=== PATIENT | male | born 1960 | race Caucasian/White ===

== ENCOUNTER 2017-07-09 17:48 | Observation (INO) | payer OTHER ==
[2017-07-09] MEDS ORDERED: Sodium Chloride 0.9% 1,000 ML IV ONE (18:48)
[2017-07-09 19:04] LABS: BASO # 0.1 K/uL (0.0-0.2); BASO % 0.8 % (0.0-2.0); EOS % 0.2 % (0.0-4.0); HEMOGLOBIN 15.7 g/dL (12.0-18.0); LYMPH # 0.6 K/uL (1.0-4.3); LYMPH % 6.2 % (20.0-40.0); MEAN CORPUSCULAR HEMOGLOBIN 32.2 pg (27.0-31.0); MEAN CORPUSCULAR HGB CONC 35.3 g/dL (33.0-37.0); MEAN PLATELET VOLUME 7.9 fL (7.2-11.7); MONO # 0.5 K/uL (0.0-0.8); MONO % 5.6 % (0.0-10.0); NEUT # 8.3 K/uL (1.8-7.0); NEUT % 87.2 % (50.0-75.0); NRBC % 0.1 % (0.0-2.0); PLATELET COUNT 206 K/uL (130-400); RBC 4.87 Mil/uL (4.40-5.90); RED CELL DISTRIBUTION WIDTH 12.9 % (11.5-14.5); WHITE BLOOD COUNT 9.5 K/uL (4.8-10.8)
[2017-07-09] MEDS ORDERED: Sodium Chloride 0.9% 1,000 ML ONE (19:07)
[2017-07-09 19:19] LABS: ALB/GLOB RATIO 1.2 (1.0-2.1); ALBUMIN 4.4 g/dL (3.5-5.0); ALT/SGPT 52 U/L (21-72); AST/SGOT 71 U/L (17-59); BLOOD UREA NITROGEN 18 mg/dL (9-20); GFR AFRICAN-AMERICAN > 60; GFR NON-AFRICAN AMERICAN > 60
[2017-07-09 19:20] LABS: BARBITURATES, UR NEGATIVE (NEGATIVE); BENZODIAZEPINES, UR NEGATIVE (NEGATIVE); OPIATES, UR NEGATIVE (NEGATIVE); PHENCYCLIDINE, UR NEGATIVE (NEGATIVE)
[2017-07-09 19:27] LABS: BANDS 4 % (0-2); BASOPHIL 1 % (0-2); LYMPHOCYTE 7 % (20-40); MICROCYTOSIS SLIGHT; MONOCYTE 5 % (0-10); NEUTROPHIL 83 % (50-75); PLATELET ESTIMATE NORMAL (NORMAL); TOTAL CELLS COUNTED 100
--- NOTE | 2017-07-09 20:08 | C.PDOC ---
History Of Present Illness 57 year old male, whose PMHx includes HTN, presents to the ED for evaluation of chest pain which has been intermittent for around 1 year. Patient notes he used to see Dr. Villatoro who has since retired and patient has not found a new PMD. Patient reports he began drinking alcohol and using cocaine around 6 days ago. Patient reports drinking 6 bottles of wine over the past weekend. He has not had any alcoholic intake in 2 days. Patient reports constant chest pain that is associated with shortness of breath and states he is shaky. Upon ED arrival, patient was found to have heart rate of 120bpm and blood pressure around 175/ 115. Additionally, patient reports Dr. Villatoro discontinued his hypertension medicaion (reason unknown) and he has not taken anything since. Patient reports he takes anti-inflammatories almost on a daily basis. Patient denies other substance abuse, fever, chills, headache, dizziness, nausea, vomiting, extremity numbness/weakness. Time Seen by Provider: 07/09/17 18:37 Chief Complaint (Nursing): Chest Pain History Per: Patient History/Exam Limitations: no limitations Onset/Duration Of Symptoms: Days Current Symptoms Are (Timing): Still Present Quality: "Pain" Associated Symptoms: denies: Nausea Additional History Per: Patient Past Medical History Reviewed: Historical Data, Nursing Documentation, Vital Signs Vital Signs: Last Vital Signs Temp 98.2 F 07/09/17 17:55 Pulse 97 H 07/09/17 20:36 Resp 18 07/09/17 20:36 BP 156/101 H 07/09/17 20:36 Pulse Ox 96 07/09/17 20:36 - Medical History PMH: Malignancy (Prostate CA, hodgkin's lymphoma) Surgical History: No Surg Hx Family History: States: Unknown Family Hx - Social History Hx Tobacco Use: Yes Hx Alcohol Use: Yes Hx Substance Use: No - Immunization History Hx Tetanus Toxoid Vaccination: No Hx Influenza Vaccination: No Hx Pneumococcal Vaccination: No Review Of Systems Constitutional: Negative for: Fever, Chills Cardiovascular: Positive for: Chest Pain Respiratory: Positive for: Shortness of Breath Neurological: Negative for: Headache, Dizziness Psych: Positive for: Other (cocaine and alcohol use ) Physical Exam - Physical Exam Appears: Non-toxic, No Acute Distress Skin: Normal Color, Warm, Dry Head: Atraumatic, Normacephalic Eye(s): bilateral: Normal Inspection Oral Mucosa: Moist Neck: Supple Chest: Symmetrical, No Deformity, No Tenderness, Other (tachycardia ) Cardiovascular: Rhythm Regular, No Murmur Respiratory: Normal Breath Sounds, No Rales, No Rhonchi, No Wheezing Extremity: Normal ROM, Capillary Refill (less than 2 seconds ) Neurological/Psych: Oriented x3, Normal Speech, Normal Cognition ED Course And Treatment - Laboratory Results Result Diagrams: 07/09/17 19:01 07/09/17 19:01 Lab Interpretation: No Acute Changes ECG: Interpreted By Me ECG Rhythm: Sinus Tachycardia, ST/T Changes, Nonspecific Changes ECG Interpretation: Abnormal O2 Sat by Pulse Oximetry: 98 (on RA) Pulse Ox Interpretation: Normal - Radiology CXR: Interpreted by Me CXR Interpretation: Yes: No Acute Disease Progress Note: Bloodwork, CXR, EKG ordered and reviewed. Vasotec PO and IV Fluids administered. Reevaluation Time: 20:49 Reassessment Condition: Improved (BP and heart rate improved but patient remains shaky) - Physician Consult Information Time Consulting Physician Contacted: 20:49 Physician Contacted: Cyndie Gamez Outcome Of Conversation: Patient to be admitted for cheest pain with tachycardia and uncontrolled hypertension. Disposition - Disposition Disposition: HOSPITALIZED Disposition Time: 20:51 Condition: IMPROVED - POA Present On Arrival: None - Clinical Impression Clinical Impression: Chest pain, Uncontrolled hypertension, Tachycardia - Scribe Statement The provider has reviewed the documentation as recorded by the Scribe (Maddi Gamez) Provider Attestation: All medical record entries made by the Scribe were at my direction and personally dictated by me. I have reviewed the chart and agree that the record accurately reflects my personal performance of the history, physical exam, medical decision making, and the department course for this patient. I have also personally directed, reviewed, and agree with the discharge instructions and disposition.
--- NOTE | 2017-07-09 23:27 | CP.PCM.HP ---
Past Patient History - Past Social History Smoking Status: CIGARS - HEMATOLOGICAL/ONCOLOGICAL Hx Blood Disorders: Yes Hx Cancer: Yes (HODGKIN'S, PROSTATE) - MUSCULOSKELETAL/RHEUMATOLOGICAL Hx Musculoskeletal Disorders: Yes Other/Comment: RIGHT SCIATICA - GASTROINTESTINAL Hx Gastrointestinal Disorders: Yes Other/Comment: HERNIA - GENITOURINARY/GYNECOLOGICAL Hx Genitourinary Disorders: Yes Hx Prostate Cancer: Yes - PSYCHIATRIC Hx Substance Use: No - SURGICAL HISTORY Hx Surgeries: Yes Other/Comment: portacath insertion - ANESTHESIA Hx Anesthesia: Yes Hx Anesthesia Reactions: No Meds Allergies/Adverse Reactions: Allergies Allergy/AdvReac Type Severity Reaction Status Date / Time No Known Allergies Allergy Verified 07/09/17 17:58 Results - Vital Signs Recent Vital Signs: Last Vital Signs Temp 98.2 F 07/09/17 17:55 Pulse 96 H 07/09/17 22:00 Resp 18 07/09/17 22:00 BP 156/105 H 07/09/17 22:00 Pulse Ox 97 07/09/17 22:00 - Labs Result Diagrams: 07/09/17 19:01 07/09/17 19:01 Labs: Laboratory Results - last 24 hr 07/09/17 07/09/17 07/09/17 19:01 19:01 19:01 WBC 9.5 D RBC 4.87 Hgb 15.7 Hct 44.3 MCV 91.0 MCH 32.2 H MCHC 35.3 RDW 12.9 Plt Count 206 MPV 7.9 Neut % (Auto) 87.2 H Lymph % (Auto) 6.2 L [place] % (Auto) 5.6 Eos % (Auto) 0.2 Baso % (Auto) 0.8 Neut # (Auto) 8.3 H Lymph # (Auto) 0.6 L [place] # (Auto) 0.5 Eos # (Auto) 0.0 Baso # (Auto) 0.1 Neutrophils % (Manual) 83 H Band Neutrophils % 4 H Lymphocytes % (Manual) 7 L Monocytes % (Manual) 5 Basophils % (Manual) 1 Platelet Estimate Normal Microcytosis (manual) Slight Sodium 139 Potassium 3.8 Chloride 95 L Carbon Dioxide 30 Anion Gap 18 BUN 18 Creatinine 1.2 Est GFR ( Amer) > 60 Est GFR (Non-Af Amer) > 60 Random Glucose 154 H Calcium 10.0 Total Bilirubin 1.8 H AST 71 H ALT 52 Alkaline Phosphatase 55 Troponin I 0.0500 Total Protein 8.2 Albumin 4.4 Globulin 3.7 Albumin/Globulin Ratio 1.2 Urine Opiates Screen Negative Urine Methadone Screen Negative Ur Barbiturates Screen Negative Ur Phencyclidine Scrn Negative Ur Amphetamines Screen Negative U Benzodiazepines Scrn Negative U Oth Cocaine Metabols Negative U Cannabinoids Screen Negative
[2017-07-10 06:48] LABS: CK-MB 3.89 ng/mL (0.0-3.38); TROPONIN I 0.051 ng/mL (0.00-0.120)
--- NOTE | 2017-07-10 08:42 | RAD ---
PROCEDURE: CHEST RADIOGRAPH, 1 VIEW HISTORY: chest pain COMPARISON: 06/21/2015 FINDINGS: LUNGS: Clear. PLEURA: No pneumothorax or pleural fluid seen. CARDIOVASCULAR: Normal heart size. No congestive change. Right central venous infusion port. OSSEOUS STRUCTURES: No significant abnormalities. VISUALIZED UPPER ABDOMEN: Normal. OTHER FINDINGS: None. IMPRESSION: No active disease.
[2017-07-10] MEDS ORDERED: Pantoprazole 40 mg EC Tab PO SCH (10:00)
[2017-07-10] MEDS ORDERED: Enoxaparin 40 mg Syringe SC SCH (10:00)
--- NOTE | 2017-07-10 11:53 | CARD ---
APPROVED REPORT EKG Measurement Heart [id number] <Conclusion> Sinus tachycardia Possible Left atrial enlargement Nonspecific ST abnormality Abnormal ECG
--- NOTE | 2017-07-10 11:57 | CP.PCM.CON ---
History of Present Illness - History of Present Illness History of Present Illness: Per [place]57 year old male, whose PMHx includes HTN, presents to the ED for evaluation of chest pain which has been intermittent for around 1 year. Patient notes he used to see Dr. Villatoro who has since retired and patient has not found a new PMD. Patient reports he began drinking alcohol and using cocaine around 6 days ago. Patient reports drinking 6 bottles of wine over the past weekend. He has not had any alcoholic intake in 2 days. Patient reports constant chest pain that is associated with shortness of breath and states he is shaky. Upon ED arrival, patient was found to have heart rate of 120bpm and blood pressure around 175/ 115. Additionally, patient reports Dr. Villatoro discontinued his hypertension medicaion (reason unknown) and he has not taken anything since. Patient reports he takes anti-inflammatories almost on a daily basis. Patient denies , fever, chills, headache, dizziness, nausea, vomiting, extremity numbness/ weakness. Past Patient History - Past Medical History & Family History Past Medical History?: Yes - Past Social History Smoking Status: Former Smoker - CARDIAC Hx Cardiac Disorders: Yes Hx Hypertension: Yes - PULMONARY Hx Respiratory Disorders: No - NEUROLOGICAL Hx Neurological Disorder: No - HEENT Hx HEENT Problems: No - RENAL Hx Chronic Kidney Disease: No - ENDOCRINE/METABOLIC Hx Endocrine Disorders: No - HEMATOLOGICAL/ONCOLOGICAL Hx Blood Disorders: Yes Hx Cancer: Yes (HODGKIN'S, PROSTATE) - INTEGUMENTARY Hx Dermatological Problems: No - MUSCULOSKELETAL/RHEUMATOLOGICAL Hx Musculoskeletal Disorders: Yes Hx Falls: Yes Other/Comment: RIGHT SCIATICA - GASTROINTESTINAL Hx Gastrointestinal Disorders: Yes Other/Comment: HERNIA - GENITOURINARY/GYNECOLOGICAL Hx Genitourinary Disorders: Yes Hx Prostate Cancer: Yes - PSYCHIATRIC Hx Psychophysiologic Disorder: Yes Hx Anxiety: Yes Hx Substance Use: Yes - SURGICAL HISTORY Hx Surgeries: Yes Other/Comment: portacath insertion - ANESTHESIA Hx Anesthesia: Yes Hx Anesthesia Reactions: No Hx Malignant Hyperthermia: No Meds Allergies/Adverse Reactions: Allergies Allergy/AdvReac Type Severity Reaction Status Date / Time No Known Allergies Allergy Verified 07/09/17 17:58 - Medications Medications: Current Medications Aspirin (Aspirin) 325 mg PO DAILY [facility] Last Admin: 07/10/17 11:13 Dose: 325 mg Chlordiazepoxide (Librium) 25 mg PO TID PRN PRN Reason: Anxiety Clopidogrel Bisulfate (Plavix) 75 mg PO DAILY [facility] Last Admin: 07/10/17 11:13 Dose: 75 mg Enoxaparin Sodium (Lovenox) 40 mg SC DAILY [facility] Last Admin: 07/10/17 11:13 Dose: 40 mg Pantoprazole Sodium (Protonix Ec Tab) 40 mg PO DAILY [facility] Last Admin: 07/10/17 11:13 Dose: 40 mg Results - Vital Signs Recent Vital Signs: Last Vital Signs Temp 97.7 F 07/10/17 08:00 Pulse 80 07/10/17 10:10 Resp 15 07/10/17 10:10 BP 131/73 07/10/17 08:27 Pulse Ox 97 07/10/17 10:10 - Labs Result Diagrams: 07/09/17 19:01 07/09/17 19:01 Labs: Laboratory Results - last 24 hr 07/09/17 07/09/17 07/09/17 19:01 19:01 19:01 WBC 9.5 D RBC 4.87 Hgb 15.7 Hct 44.3 MCV 91.0 MCH 32.2 H MCHC 35.3 RDW 12.9 Plt Count 206 MPV 7.9 Neut % (Auto) 87.2 H Lymph % (Auto) 6.2 L [place] % (Auto) 5.6 Eos % (Auto) 0.2 Baso % (Auto) 0.8 Neut # (Auto) 8.3 H Lymph # (Auto) 0.6 L [place] # (Auto) 0.5 Eos # (Auto) 0.0 Baso # (Auto) 0.1 Neutrophils % (Manual) 83 H Band Neutrophils % 4 H Lymphocytes % (Manual) 7 L Monocytes % (Manual) 5 Basophils % (Manual) 1 Platelet Estimate Normal Microcytosis (manual) Slight Sodium 139 Potassium 3.8 Chloride 95 L Carbon Dioxide 30 Anion Gap 18 BUN 18 Creatinine 1.2 Est GFR ( Amer) > 60 Est GFR (Non-Af Amer) > 60 Random Glucose 154 H Calcium 10.0 Total Bilirubin 1.8 H AST 71 H ALT 52 Alkaline Phosphatase 55 Total Creatine Kinase CK-MB (Mass) Troponin I 0.0500 Total Protein 8.2 Albumin 4.4 Globulin 3.7 Albumin/Globulin Ratio 1.2 Urine Opiates Screen Negative Urine Methadone Screen Negative Ur Barbiturates Screen Negative Ur Phencyclidine Scrn Negative Ur Amphetamines Screen Negative U Benzodiazepines Scrn Negative U Oth Cocaine Metabols Negative U Cannabinoids Screen Negative 07/10/17 06:16 WBC RBC Hgb Hct MCV MCH MCHC RDW Plt Count MPV Neut % (Auto) Lymph % (Auto) [place] % (Auto) Eos % (Auto) Baso % (Auto) Neut # (Auto) Lymph # (Auto) [place] # (Auto) Eos # (Auto) Baso # (Auto) Neutrophils % (Manual) Band Neutrophils % Lymphocytes % (Manual) Monocytes % (Manual) Basophils % (Manual) Platelet Estimate Microcytosis (manual) Sodium Potassium Chloride Carbon Dioxide Anion Gap BUN Creatinine Est GFR ( Amer) Est GFR (Non-Af Amer) Random Glucose Calcium Total Bilirubin AST ALT Alkaline Phosphatase Total Creatine Kinase 292 H CK-MB (Mass) 3.89 H Troponin I 0.0510 Total Protein Albumin Globulin Albumin/Globulin Ratio Urine Opiates Screen Urine Methadone Screen Ur Barbiturates Screen Ur Phencyclidine Scrn Ur Amphetamines Screen U Benzodiazepines Scrn U Oth Cocaine Metabols U Cannabinoids Screen - EKG Data EKG Interpreted by: Myself (Sinus tach, no acute ischemic changes) - Imaging and Cardiology Chest x-ray Status: Image reviewed by me Assessment & Plan - Assessment and Plan (Free Text) Assessment: CP - EKG is sinus tach, no acute ischemic changes - CXR without infiltrate, normal heart size, no infiltrate or congestion - Trop x2 negative - cont DAPT with GI prophylaxis for now HTN - Initially elevated but now stable - ETOH use: withdrawal precautions - Monitor BP for now - urine tox: negative for cocaine Other - Mild inc in AST 71H BILI 1.8 H - hx of ETOH use - Agree with PPI PLAN F/U echo to eval cardiac structure and function Suggest eval of lipid profile Suggest Cozaar 25 for HTN; Coreg 3.125 BID can be considered if educated on risks given cocaine use * Patient signed out AMA prior to being seen.
[2017-07-10 12:10] LABS: CK-MB 4.99 ng/mL (0.0-3.38); TROPONIN I 0.031 ng/mL (0.00-0.120)
[2017-07-10 19:17] VITALS: BP 159/101
--- NOTE | 2017-07-10 19:18 | CP.PCM.PN ---
Subjective - Date & Time of Evaluation Date of Evaluation: 07/10/17 Time of Evaluation: 11:40 - Subjective Subjective: clinically same Objective - Vital Signs/Intake and Output Vital Signs (last 24 hours): Temp Pulse Resp BP Pulse Ox 97.5 F L 86 20 151/94 H 98 07/10/17 16:00 07/10/17 18:00 07/10/17 17:00 07/10/17 16:28 07/10/17 17:00 Intake and Output: 07/10/17 07/11/17 18:59 06:59 Intake Total 1320 Output Total 400 Balance 920 - Medications Medications: Current Medications Aspirin (Aspirin) 325 mg PO DAILY [facility] Last Admin: 07/10/17 11:13 Dose: 325 mg Chlordiazepoxide (Librium) 25 mg PO TID PRN PRN Reason: Anxiety Clopidogrel Bisulfate (Plavix) 75 mg PO DAILY [facility] Last Admin: 07/10/17 11:13 Dose: 75 mg Enoxaparin Sodium (Lovenox) 40 mg SC DAILY [facility] Last Admin: 07/10/17 11:13 Dose: 40 mg Pantoprazole Sodium (Protonix Ec Tab) 40 mg PO DAILY [facility] Last Admin: 07/10/17 11:13 Dose: 40 mg - Labs Labs: 07/09/17 19:01 07/09/17 19:01 - Constitutional Appears: Well - Head Exam Head Exam: ATRAUMATIC, NORMAL INSPECTION, NORMOCEPHALIC - Eye Exam Eye Exam: EOMI, Normal appearance, PERRL Pupil Exam: NORMAL ACCOMODATION, PERRL - ENT Exam ENT Exam: Mucous Membranes Moist, Normal Exam - Neck Exam Neck Exam: Full ROM, Normal Inspection. absent: Lymphadenopathy - Respiratory Exam Respiratory Exam: Decreased Breath Sounds - Cardiovascular Exam Cardiovascular Exam: REGULAR RHYTHM, +S1, +S2 - GI/Abdominal Exam GI & Abdominal Exam: Soft, Diminished Bowel Sounds - Rectal Exam Rectal Exam: Deferred
[2017-07-10 20:18] VITALS: PULSE 80; RESP 16; TEMP 98.6; O2SAT 100
--- NOTE | 2017-07-10 21:06 | CP.PCM.PN ---
Subjective - Date & Time of Evaluation Date of Evaluation: 07/10/17 Time of Evaluation: 21:05 - Subjective Subjective: Paged at 8:30pm as the patient wanted to sign out AMA patient states no doctor has been to see him since he was admitted to the hospital warned patient of risks of signing out AMA which could include [place], , coma, stroke, and permanent disfigurement patient understood risks and benefits of staying and still wished to leave [facility] [place] PGY2 Objective - Vital Signs/Intake and Output Vital Signs (last 24 hours): Temp Pulse Resp BP Pulse Ox 98.6 F 80 16 159/101 H 100 07/10/17 20:00 07/10/17 20:00 07/10/17 20:00 07/10/17 18:27 07/10/17 20:00 Intake and Output: 07/10/17 07/11/17 18:59 06:59 Intake Total 1320 Output Total 400 Balance 920 - Medications Medications: Current Medications Aspirin (Aspirin) 325 mg PO DAILY [facility] Last Admin: 07/10/17 11:13 Dose: 325 mg Chlordiazepoxide (Librium) 25 mg PO TID PRN PRN Reason: Anxiety Clopidogrel Bisulfate (Plavix) 75 mg PO DAILY [facility] Last Admin: 07/10/17 11:13 Dose: 75 mg Enoxaparin Sodium (Lovenox) 40 mg SC DAILY [facility] Last Admin: 07/10/17 11:13 Dose: 40 mg Pantoprazole Sodium (Protonix Ec Tab) 40 mg PO DAILY [facility] Last Admin: 07/10/17 11:13 Dose: 40 mg - Labs Labs: 07/09/17 19:01 07/09/17 19:01
== END 2017-07-10 21:21 | disposition left against medical advice (07) ==
LOC: C.ER 17:48 → C.9E 20:52 → C.9I 07-10 01:36
PROVIDERS: ADMIT Internal Medicine Nephrology; ATTEND Internal Medicine Nephrology
DX: R07.9 Chest pain, unspecified (principal); I10 Essential (primary) hypertension; F41.9 Anxiety disorder, unspecified; F14.90 Cocaine use, unspecified, uncomplicated; Z85.46 Personal history of malignant neoplasm of prostate; Z85.71 Personal history of Hodgkin lymphoma; Z87.891 Personal history of nicotine dependence
CPT/HCPCS: 71045; 80053; 80324; 80345; 80346; 80349; 80353; 80358; 80361; 83992; 84484; 85025; 87081; 93005; 96360; 96372; 99285; G0378; J1650; J7040